=== PATIENT | male | born 1975 | race Caucasian/White ===

== ENCOUNTER 2024-03-06 22:03 | Emergency (ER) | payer SELFPAY ==
[~2024-03-06] VITALS: Ht 167.6 cm; Wt 81.6 kg
[2024-03-06 22:21] VITALS: BP 139/79; PULSE 98; RESP 16; TEMP 98.3; O2SAT 98
[2024-03-06 23:10] VITALS: BP 139/79; PULSE 98; RESP 16; TEMP 98.3; O2SAT 98
== END 2024-03-06 23:10 ==
LOC: MED 22:03
DX: S00.83XA Contusion of other part of head, initial encounter (principal); Y04.8XXA Assault by other bodily force, initial encounter; Y93.89 Activity, other specified; Y92.488 Other paved roadways as the place of occurrence of the external cause; Y99.8 Other external cause status
CPT/HCPCS: 99283